=== PATIENT | female | born 1980 | race Caucasian/White ===

== ENCOUNTER 2020-07-31 09:58 | Emergency (ER) | payer SELFPAY ==
[2020-07-31] MEDS ORDERED: Pregabalin 50 MG CAP PO SCH (11:30)
== END 2020-07-31 12:42 | disposition home or self-care (01) ==
LOC: ERS 09:58
DX: G89.29 Other chronic pain (principal); M54.9 Dorsalgia, unspecified; I10 Essential (primary) hypertension; F17.210 Nicotine dependence, cigarettes, uncomplicated; Z79.899 Other long term (current) drug therapy
CPT/HCPCS: 99283